=== PATIENT | male | born 1975 | race Caucasian/White ===

== ENCOUNTER 2017-06-08 13:47 | Emergency (ER) | payer OTHER ==
--- NOTE | 2017-06-08 15:51 | RAD ---
INDICATION: Acute on chronic neck pain. COMPARISON: There are no prior studies available for comparison. TECHNIQUE: 5 views of the cervical spine were obtained including lateral, oblique, AP, open-mouth odontoid views. FINDINGS: C1-C7 are visualized. There is straightening of the cervical spine with loss of the normal cervical lordosis. No prevertebral soft tissue swelling or fracture is seen. There is mild to moderate disc space narrowing and uncinate process spurring present at the C3-C4, C4-C5, C5-C6 and C6-C7 levels. There is mild bilateral neural foraminal narrowing at the C4-C5, C5-C6 and C6-C7 levels. IMPRESSION: 1. STRAIGHTENING OF THE CERVICAL SPINE. 2. MILD TO MODERATE DEGENERATIVE DISC DISEASE.
[2017-06-08 16:12] VITALS: BP 125/80
[2017-06-08] MEDS ORDERED: Ketorolac INJ* 60 MG/2 ML VIAL IM ONE (16:21)
--- NOTE | 2017-06-08 16:33 | UC ---
Neck Pain HPI - HPI Summary HPI Summary: TWO DAYS OF ACUTE ON CHRONIC RIGHT SIDED NECK PAIN. SPASMS AND PAIN IN RIGHT SIDED OF NECK RADIATE TO SHOULDER. 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 NO FEVER. NO HEADACHE. NO KNOWN TRAUMA - History of Current Complaint Chief Complaint: UCBackPain Stated Complaint: NECK PAIN Time Seen by Provider: 06/08/17 14:50 Hx Obtained From: Patient Onset/Duration Of Injury/Symptoms: Days Mechanism Of Injury: No Known Trauma Timing: Intermittent Episodes Onset/Duration: Lasting Days, Still Present Severity: Moderate Location: Discrete At: - RIGHT NECK, Radiates To: - RIGHT SHOULDER Character: Spasmotic Aggravating Factors: Movement Alleviating Factors: Nothing Associated Signs & Symptoms: Positive: Negative - Risk Factors Meningitis Risk Factors: Negative - Allergies/Home Medications Allergies/Adverse Reactions: Allergies Allergy/AdvReac Type Severity Reaction Status Date / Time No Known Allergies Allergy Verified 06/08/17 14:32 Home Medications: Home Medications Acetaminophen [Eq Acetaminophen] 975 mg PO Q6H PRN 06/08/17 [History Confirmed 06/08/17] Ibuprofen [Ibuprofen 200 MG] 600 mg PO Q6H PRN 06/08/17 [History Confirmed 06/08] PMH/Surg Hx/FS Hx/Imm Hx Previously Healthy: Yes - Surgical History Surgical History: Yes Surgery Procedure, Year, and Place: ARTHROSCOPIC SURGERY LT KNEE 1999 - Family History Known Family History: Negative: Blood Disorder - Social History Occupation: Employed Full-time Lives: With Family Alcohol Use: Rare Substance Use Type: None Smoking Status (MU): Never Smoked Tobacco - Immunization History Most Recent Influenza Vaccination: none Review Of Systems Constitutional: Positive: Negative Skin: Positive: Negative Eyes: Positive: Negative ENT: Positive: Negative Respiratory: Positive: Negative Cardiovascular: Positive: Negative Gastrointestinal: Positive: Negative Genitourinary: Positive: Negative Musculoskeletal: Positive: Arthralgia, Myalgia Neurological: Positive: Negative Psychological: Positive: Negative All Other Systems Reviewed And Are Negative: Yes Physical Exam Triage Information Reviewed: Yes Appearance: Well-Appearing, No Pain Distress, Well-Nourished Vital Signs: Initial Vital Signs Temp 97.3 F 06/08/17 14:27 Pulse 72 06/08/17 14:27 Resp 16 06/08/17 14:27 BP 136/76 06/08/17 14:27 Pulse Ox 100 10/14/17 14:27 Vital Signs Reviewed: Yes Eye Exam: Normal ENT Exam: Normal ENT: Positive: Normal ENT inspection, Hearing grossly normal, TMs normal Dental Exam: Normal Neck exam: Normal Neck: Positive: Supple, Nontender, No Lymphadenopathy Respiratory Exam: Normal Respiratory: Positive: Chest non-tender, Lungs clear, Normal breath sounds, No respiratory distress Cardiovascular Exam: Normal Cardiovascular: Positive: RRR, No Murmur Abdominal Exam: Normal Musculoskeletal: Positive: Strength Intact, ROM Intact, No Edema, Other: - PAIN RIGHT SIDED NECK WITH SPASM Psychological Exam: Normal Skin Exam: Normal Neck Pain Course/Dx - Differential Dx/Diagnosis Differential Dx/HQI/PQRI: Sprain, Strain, Torticollis, Trauma Provider Diagnoses: RIGHT SIDED TORTICOLLIS; DEGENERATIVE DISK DISEASE Discharge - Discharge Plan Condition: Stable Disposition: HOME Prescriptions: HYDROcodone/ACETAMIN 5-325 MG* [Gordon 5-325 TAB*] 1 tab PO Q8H PRN #15 tab MDD three tabs PRN Reason: Pain Metaxalone TAB* [Skelaxin TAB*] 800 mg PO TID PRN #15 tab PRN Reason: Spasms Patient Education Materials: Cervical Strain (ED), Spasmodic Torticollis (ED), Degenerative Disc Disease (ED) Referrals: Nathan Adame MD [Primary Care Provider] - Additional Instructions: PHYSICAL THERAPY REFERRAL: You have been prescribed physical therapy. Treatments may include stretching, exercise, application of heat or cold, and other modalities. After an injury, PT can reduce swelling and pain. In recovery, PT is used to restore mobility and strength. Your specific treatment goals are: ___x__ Reduction of Swelling (EGS, US, ice as needed) ___x__ Pain Reduction (EGS, US, ice as needed) TENS Pack Fitting and Instruction Wound Hydrotherapy ___x__ Preservation of Mobility ___x__ Mu-Ism of Mobility __x___ Strength Mu-Ism __x___ Work or Sports Hardening This instruction sheet also serves as your PHYSICAL THERAPY REFERRAL! Please take it with you to the therapist, so he/she will be aware of your diagnosis and treatment plan. You may see the physical therapist of your choice for these treatments, but may wish to check with your insurance to be sure the provider you select is covered. It's important to see the doctor to whom you have been referred for follow up.
== END 2017-06-08 16:37 | disposition home or self-care (01) ==
LOC: UCEAST 13:47
DX: M43.6 Torticollis (principal); M50.30 Other cervical disc degeneration, unspecified cervical region
CPT/HCPCS: 72050; 99212; G0463; J1885

== ENCOUNTER 2018-09-04 11:22 | Emergency (ER) | payer OTHER ==
[2018-09-04] MEDS ORDERED: Naproxen TAB* 250 MG PO ONE (11:58)
[2018-09-04] MEDS ORDERED: Cyclobenzaprine TAB* 10 MG PO ONE (11:58)
--- NOTE | 2018-09-04 12:08 | ED ---
Neck Pain - HPI Summary HPI Summary: Patient is a 43 y/o M presenting to ED with neck pain. He states that he did an awkward forward flip and experienced compression and crunch upon finishing the movement. Afterwards, neck pain onset, he describes neck as tender. He took ibuprofen last night. Hx of neck injury 10 years ago, states he was tentatively diagnosed with a slipped disc, notes neck pain resolved after a year. 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 No HENRY reported. He reports pain with nodding movement of head, limited range of motion sideways but no pain. In the room, pain is rated 2/10, nothing is noted to aggravate/ alleviate Sx. Home medications and allergies are reviewed. - History of Current Complaint Chief Complaint: EDNeckComplaint Stated Complaint: NECK INJURY Time Seen by Provider: 09/04/18 11:48 Hx Obtained From: Patient Onset/Duration Of Injury/Symptoms: Days - last night Mechanism Of Injury: Other - forward flip Timing: Constant, Lasting Days - onset last night Onset/Duration: Started days ago - onset last night, Still Present Severity Currently: Mild - 2/10 Pain Intensity: 2 Pain Scale Used: 0-10 Numeric - 2/10 Location: Diffuse Character: Other: - describes area as tender Aggravating Factors: Nothing Alleviating Factors: Nothing Associated Signs & Symptoms: Negative: Headache - Allergies/Home Medications Allergies/Adverse Reactions: Allergies Allergy/AdvReac Type Severity Reaction Status Date / Time No Known Allergies Allergy Verified 06/08/17 14:32 PMH/Surg Hx/FS Hx/Imm Hx Endocrine/Hematology History: Denies: Hx Diabetes Cardiovascular History: Denies: Hx Hypertension, Hx Pacemaker/ICD Respiratory History: Denies: Other Respiratory Problems/Disorders History: Denies: Hx Renal Disease Musculoskeletal History: Denies: Hx Scoliosis Sensory History: Denies: Hx Hearing Aid Neurological History: Reports: Hx Headaches Denies: Other Neuro Impairments/Disorders Psychiatric History: Denies: Hx Panic Disorder - Surgical History Surgery Procedure, Year, and Place: ARTHROSCOPIC SURGERY LT [facility]NEE 2000 Infectious Disease History: No Infectious Disease History: Reports: Hx Tuberculosis - as a child Denies: Traveled Outside the [place] in Last 30 Days - Family History Known Family History: Negative: Blood Disorder - Social History Alcohol Use: Rare Substance Use Type: Reports: None Hx Tobacco Use: No Smoking Status (MU): Never Smoked Tobacco Review of Systems Positive: Other - NEGATIVE - NECK PAIN Negative: Headache All Other Systems Reviewed And Are Negative: Yes Physical Exam - Summary Physical Exam Summary: Appearance: Well appearing, no pain distress Skin: warm, dry, reflects adequate perfusion Head/face: normal Eyes: EOMI, RENZO ENT: mucous membranes moist Neck: supple, non-tenderf Respiratory: CTA, breath sounds present Cardiovascular: RRR, pulses symmetrical Abdomen: non-tender, soft Bowel Sounds: present Musculoskeletal: strength/ROM intact; tenderness just right of midline at C3 Neuro: normal, sensory motor intact, A&Ox3 Triage Information Reviewed: Yes Vital Signs On Initial Exam: Initial Vitals Temp Pulse Resp BP Pulse Ox 98.1 F 78 15 137/93 98 09/04/18 11:26 09/04/18 11:26 09/04/18 11:26 09/04/18 11:26 09/04/18 11:26 Vital Signs Reviewed: Yes Diagnostics - Vital Signs Vital Signs Temp Pulse Resp BP Pulse Ox 09/04/18 11:26 98.1 F 78 15 137/93 98 - Laboratory Lab Statement: Any lab studies that have been ordered have been reviewed, and results considered in the medical decision making process. - CT CERVICAL SPINE CT CT Interpretation Completed By: Radiologist Summary of CT Findings: IMPRESSION: #. No CT evidence for traumatic cervical spine injury. #. Mild degenerative spondylosis. THIS REPORT WAS REVIEWED BY ED PHYSICIAN. Neck Course/Dx - Course Course Of Treatment: Nurse's notes reviewed. Patient with neck discomfort after injury doing gymnastics. Neck CT negative. Patient placed in a soft collar which she then declined. Treat symptomatically. Follow-up chiropractor. - Diagnoses Differential Dx/HQI/PQRI: Positive: Cervical Fracture, Dislocation - Cervical, Sprain, Strain Provider Diagnoses: Cervical strain Discharge - Sign-Out/Discharge Documenting (check all that apply): Patient Departure - DISCHARGE - Discharge Plan Condition: Stable Disposition: HOME Prescriptions: Cyclobenzaprine (NF) [Cyclobenzaprine 5 MG (NF)] 5 mg PO TID PRN #10 tab PRN Reason: muscle pain Metaxalone TAB* [Skelaxin TAB*] 800 mg PO TID PRN #15 tab PRN Reason: Spasms Naproxen [Naproxen 500 mg tab] 500 mg PO BID PRN #10 tablet.dr VINCENT Reason: Pain Patient Education Materials: Cervical Strain (ED) Referrals: German Hall DO [Primary Care Provider] - Additional Instructions: Ice, range of motion exercises as needed. Follow-up with your primary care physician. rn intensive care unit may help. Call for an appointment. Return with numbness/weakness, increased pain, worse, new symptoms or other concerns. - Billing Disposition and Condition Condition: STABLE Disposition: Home - Attestation Statements Document Initiated by Micaelaibe: Yes Documenting Scribe: MOISES DAVIES Provider For Whom Aidee is Documenting (Include Credential): DORETHA MARSHALL MD Scribe Attestation: MOISES Jain , scribed for DORETHA MARSHALL MD on 09/04/18 at 1442. Scribe Documentation Reviewed: Yes Provider Attestation: The documentation as recorded by the MOISES doan accurately reflects the service I personally performed and the decisions made by me, DORETHA MARSHALL MD Status of Scribe Document: Viewed
[2018-09-04 12:57] VITALS: BP 131/79
== END 2018-09-04 12:56 | disposition home or self-care (01) ==
LOC: ED 11:22
DX: S16.1XXA Strain of muscle, fascia and tendon at neck level, initial encounter (principal); M54.2 Cervicalgia; X50.9XXA Other and unspecified overexertion or strenuous movements or postures, initial encounter; Y92.9 Unspecified place or not applicable
CPT/HCPCS: 72125; 99282; A9270-GY